=== PATIENT | female | born 1945 | race Caucasian/White ===

== ENCOUNTER 2018-03-25 13:39 | Emergency (ER) | payer MEDICARE ==
[~2018-03-25] VITALS: Ht 162.6 cm; Wt 70.8 kg
[2018-03-25 14:00] VITALS: BP 153/74
[2018-03-25] MEDS ORDERED: CEPH500C PO (14:11)
[2018-03-25] MEDS ORDERED: DIPHTH,PERTUSS(ACELL),TET TOX 0.5 ML DISP.SYRIN. VAX IM ONE (14:15)
--- NOTE | 2018-03-25 14:15 | PHYS DOC ---
Past History Past Medical History: Arthritis, Cancer, GERD, Hypertension, Other Past Surgical History: Knee Replacement, Other Alcohol Use: None Drug Use: None Adult General Chief Complaint Chief Complaint: UPPER EXTREMITY PAIN HPI HPI Patient is a 73-year-old female who is presenting with right forearm redness and swelling. 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 Symptoms are mild to moderate and worsening with time Current Medications Current Medications Current Medications Medications (Trade) Dose Ordered Sig/Therese Start Time Stop Time Status Last Admin Dose Admin Diphtheria/ Tetanus/Acell Pertussis (Boostrix) 0.5 ml ONCE ONCE 03/25/18 14:15 03/25/18 14:16 UNV Allergies Allergies Allergies Coded Allergies Type Severity Reaction Last Updated Verified No Known Drug Allergies 03/25/18 No Physical Exam Physical Exam Constitutional: Well developed, well nourished, no acute distress, non-toxic appearance. [] HENT: Normocephalic, atraumatic, bilateral external ears normal, oropharynx moist, no oral exudates, nose normal. [] Eyes: PERRLA, EOMI, conjunctiva normal, no discharge. [] Neck: Normal range of motion, no tenderness, supple, no stridor. [] Normal respiratory effort no increased work of breathing Abdomen: Bowel sounds normal, soft, no tenderness, no masses, no pulsatile masses. [] Skin: Right forearm there is a small healing abrasion to the right forearm and there is maybe some very faint streaking and mild swelling of the forearm = Extremities: See above Neurologic: Alert and oriented X 3, normal motor function, normal sensory function, no focal deficits noted. [] Psychologic: Affect normal, judgement normal, mood normal. [] Current Patient Data Vital Signs Vital Signs Date Time Temp Pulse Resp B/P (MAP) Pulse Ox O2 Delivery O2 Flow Rate FiO2 03/25/18 14:00 97.9 69 18 97 Room Air EKG EKG [] Radiology/Procedures Radiology/Procedures [] Course & Med Decision Making Course & Med Decision Making Pertinent Labs and Imaging studies reviewed. (See chart for details) []Recent minor abrasion to the right forearm possible mild cellulitis neurovascularly intact radial pulse intact median ulnar radial nerve function is intact wrist extension and flexion is intact. She really mild cellulitis. This is updated with a prescription for Keflex was given return precautions were discussed and she voiced understanding overall the symptoms and exam are fairly mild. Dragbob Disclaimer Dragon Disclaimer This electronic medical record was generated, in whole or in part, using a voice recognition dictation system. Departure Departure: Impression: Primary Impression: Cellulitis Disposition: HOME, SELF-CARE Condition: IMPROVED Patient Instructions: Cellulitis, [id number] Scripts Cephalexin (CEPHALEXIN) 500 Mg Capsule 1 CAP PO QID, #40 CAP Prov: STARLA RESENDIZ MD 03/25/18 STARLA RESENDIZ MD Mar 25, 2018 14:15
== END 2018-03-25 14:41 | disposition home or self-care (01) ==
LOC: ER 13:39
DX: L03.113 Cellulitis of right upper limb (principal); K21.9 Gastro-esophageal reflux disease without esophagitis; I10 Essential (primary) hypertension
CPT/HCPCS: 90471; 90715; 99283-25

== ENCOUNTER → 2019-06-09 | Outpatient (CLI) | payer MEDICARE ==
[~2019-06-09] MED LIST: CEPH500C PO
[2019-06-09 10:10] LABS: ALBUMIN 3.5 g/dL (3.4-5.0); CALCIUM 8.9 mg/dL (8.5-10.1); CREATININE 1.1 mg/dL (0.6-1.0); GFR 48.3; POTASSIUM 4.1 mmol/L (3.5-5.1); TOTAL BILIRUBIN 0.5 mg/dL (0.2-1.0); TOTAL PROTEIN 7.1 g/dL (6.4-8.2)
== END | disposition home or self-care (01) ==
LOC: LAB 09:14
PROVIDERS: ATTEND Nurse Practitioner
DX: E78.5 Hyperlipidemia, unspecified (principal)
CPT/HCPCS: 36415; 80053; 80061

== ENCOUNTER 2021-05-08 13:12 | Emergency (ER) | payer MEDICARE ==
[~2021-05-08] VITALS: Ht 162.6 cm; Wt 78.2 kg
[2021-05-08] MEDS ORDERED: IOHEXOL 350 MG/ML 100 ML VIAL. IV ONE (14:15)
[2021-05-08] MEDS ORDERED: CONTRAST GIVEN. MC PRN (14:30)
[2021-05-08 14:42] LABS: BASO # 0.1 x10^3/uL (0.0-0.2); BASO % 1 % (0-3); EOS # 0.2 x10^3/uL (0.0-0.7); EOS % 3 % (0-3); HEMATOCRIT 40.1 % (36.0-47.0); HEMOGLOBIN 13.3 g/dL (12.0-15.5); LYMPH # 1.2 x10^3/uL (1.0-4.8); LYMPH % 14 % (24-48); MEAN CORPUSCULAR HEMOGLOBIN 32 pg (25-35); MEAN CORPUSCULAR HGB CONC 33 g/dL (31-37); MEAN CORPUSCULAR VOLUME 96 fL (79-100); MONO # 0.6 x10^3/uL (0.0-1.1); MONO % 7 % (0-9); NEUT % 74 % (31-73); PLATELET COUNT 299 x10^3/uL (140-400); RED BLOOD COUNT 4.16 x10^6/uL (3.50-5.40); RED CELL DISTRIBUTION WIDTH 13.9 % (11.5-14.5); WHITE BLOOD COUNT 8.1 x10^3/uL (4.0-11.0)
[2021-05-08 14:55] LABS: CALCIUM 9.1 mg/dL (8.5-10.1); CREATININE 1.1 mg/dL (0.6-1.0); POTASSIUM 3.4 mmol/L (3.5-5.1)
--- NOTE | 2021-05-08 14:58 | EKG ---
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
[2021-05-08 15:01] LABS: ALBUMIN 3.6 g/dL (3.4-5.0); ALBUMIN/GLOBULIN RATIO 1.1 (1.0-1.7); MAGNESIUM 1.9 mg/dL (1.8-2.4); TOTAL BILIRUBIN 0.8 mg/dL (0.2-1.0); TOTAL PROTEIN 6.9 g/dL (6.4-8.2)
--- NOTE | 2021-05-08 15:56 | PHYS DOC ---
Past History Past Medical History: Arthritis, Cancer, GERD, Hypertension, Other Additional Past Medical Histor: acsending aortic anneurism (ANUPAMA GARY DO) Past Surgical History: Knee Replacement, Other Additional Past Surgical Histo: right shoulder; abd exploratory lap;R wrist fx (ANUPAMA GARY DO) Alcohol Use: None Drug Use: None (ANUPAMA GARY DO) General Adult EDM: Chief Complaint: ABDOMINAL PAIN HPI: HPI: 76-year-old F PMH "ascending aneurysm," followed by Dr. Cox, GERD, HTN and OA, presents the ED with complaints of dull, hard pain that started around 930 this morning after eating [employer], reports it moved from the edge of her sternum to her bellybutton with associated nonbloody nonbilious vomiting. Patient states she drove herself here. Is not vaccinated for Covid. 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 (ANUPAMA GARY DO) Review of Systems: Review of Systems: Constitutional: Denies fever or chills Eyes: Denies change in visual acuity HENT: Denies nasal congestion or sore throat Respiratory: Denies cough or shortness of breath Cardiovascular: Denies chest pain or edema GI: Denies bloody stools or diarrhea or steatorrhea : Denies dysuria or hematuria Musculoskeletal: Denies back pain or joint pain Integument: Denies rash or diaphoresis Neurologic: Denies headache, focal weakness or sensory changes Endocrine: Denies polyuria or polydipsia Lymphatic: Denies swollen glands Psychiatric: Denies depression or anxiety (ANUPAMA GARY DO) Current Medications: Current Meds: Current Medications Medications (Trade) Dose Ordered Sig/Therese Start Time Stop Time Status Last Admin Dose Admin Info (Do NOT chart on this entry -- for MONITORING) 1 each PRN DAILY PRN 05/08/21 14:30 05/10/21 14:29 Iohexol (Omnipaque 350 Mg/ml) 100 ml 1X ONCE 05/08/21 14:15 05/08/21 14:18 DC (ANUPAMA GARY DO) Allergies: Allergies: Allergies Coded Allergies Type Severity Reaction Last Updated Verified No Known Drug Allergies 05/08/21 No (ANUPAMA GARY DO) Physical Exam: PE: Constitutional: Well developed, well nourished, no acute distress, non-toxic appearance. HENT: Normocephalic, atraumatic, Eyes: EOMI, conjunctiva normal, no discharge. Neck: Normal range of motion, supple, Cardiovascular: S1/2 present, regular rhythm Lungs & Thorax: Speaking in full sentences, bilateral equal chest rise, no tachypnea or increased work of breathing Abdomen: soft, epigastric tenderness, some right upper quadrant tenderness but no Cha sign, no rigidity or guarding, no active emesis Skin: Warm, dry, no erythema, no rash. [] Extremities: No tenderness, no cyanosis, Neurologic: Alert and oriented X 3, normal motor function, normal sensory function, no focal deficits noted. [] Psychologic: Affect normal, judgement normal, mood normal. [] ([facility],ANUPAMA Sarmiento DO) Current Patient Data: Labs: Laboratory Tests Test 05/08/21 14:20 White Blood Count 8.1 x10^3/uL (4.0-11.0) Red Blood Count 4.16 x10^6/uL (3.50-5.40) Hemoglobin 13.3 g/dL (12.0-15.5) Hematocrit 40.1 % (36.0-47.0) Mean Corpuscular Volume 96 fL (79-100) Mean Corpuscular Hemoglobin 32 pg (25-35) Mean Corpuscular Hemoglobin Concent 33 g/dL (31-37) Red Cell Distribution Width 13.9 % (11.5-14.5) Platelet Count 299 x10^3/uL (140-400) Neutrophils (%) (Auto) 74 % (31-73) H Lymphocytes (%) (Auto) 14 % (24-48) L Monocytes (%) (Auto) 7 % (0-9) Eosinophils (%) (Auto) 3 % (0-3) Basophils (%) (Auto) 1 % (0-3) Neutrophils # (Auto) 6.0 x10^3uL (1.8-7.7) Lymphocytes # (Auto) 1.2 x10^3/uL (1.0-4.8) Monocytes # (Auto) 0.6 x10^3/uL (0.0-1.1) Eosinophils # (Auto) 0.2 x10^3/uL (0.0-0.7) Basophils # (Auto) 0.1 x10^3/uL (0.0-0.2) Sodium Level 145 mmol/L (136-145) Potassium Level 3.4 mmol/L (3.5-5.1) L Chloride Level 106 mmol/L (98-107) Carbon Dioxide Level 27 mmol/L (21-32) Anion Gap 12 (6-14) Blood Urea Nitrogen 20 mg/dL (7-20) Creatinine 1.1 mg/dL (0.6-1.0) H Estimated GFR (Cockcroft-Gault) 48.0 BUN/Creatinine Ratio 18 (6-20) Glucose Level 133 mg/dL (70-99) H Calcium Level 9.1 mg/dL (8.5-10.1) Magnesium Level 1.9 mg/dL (1.8-2.4) Total Bilirubin 0.8 mg/dL (0.2-1.0) Aspartate Amino Transferase (AST) 33 U/L (15-37) Alanine Aminotransferase (ALT) 28 U/L (14-59) Alkaline Phosphatase 170 U/L (46-116) H Troponin I Quantitative < 0.017 ng/mL (0-0.055) Total Protein 6.9 g/dL (6.4-8.2) Albumin 3.6 g/dL (3.4-5.0) Albumin/Globulin Ratio 1.1 (1.0-1.7) Lipase 80 U/L (73-393) Vital Signs: Vital Signs Date Time Temp Pulse Resp B/P (MAP) Pulse Ox O2 Delivery O2 Flow Rate FiO2 05/08/21 13:48 97.9 60 24 122/74 98 Room Air (ANUPAMA GARY DO) EKG: EK sinus rhythm 61 bpm, no axis deviation, QRS 128, QTC 45, PVCs present, T wave inversion in aVF, no ST elevations or ST depressions (ANUPAMA GARY DO) Radiology/Procedures: Radiology/Procedures: IMAGING REPORT Signed PATIENT: MICHELLE BLCAK ACCOUNT: [id number] : 1945 LOCATION: ER AGE: 76 SEX: F EXAM STATUS: REG ER ORD. PHYSICIAN: ANUPAMA GARY DO REASON: cp, h/o ascending anuerysm, r/o dissection - 75mls omni 350 PROCEDURE: CT ANGIO CHEST ABD PELVIS Exam: CT of chest, abdomen and pelvis with contrast INDICATION: History of ascending aneurysm TECHNIQUE: Sequential axial images through the chest, abdomen and pelvis obtained following the administration of 75 mL of Isovue-370 IV contrast. Sagittal and coronal reformatted images were reconstructed from the axial data and reviewed. Exposure: One or more of the following in the visualized dose reduction techniques were utilized for this examination: 1. Automated exposure control 2. Adjustment of the MA and/or KV according to patient size 3. Use of iterative of reconstructive technique Comparisons: Chest x-ray same day FINDINGS: Visualized portions of the thyroid are unremarkable. No enlarged mediastinal lymph nodes are identified. Heart size is normal. No pericardial effusion. There is aneurysmal dilatation of ascending aorta measuring up to 4.2 cm in diameter. Pulmonary artery is not enlarged. Airways are patent. No consolidation or pneumothorax. No suspicious lung nodules. No pleural effusion or thickening. Liver,, spleen, pancreas and adrenals are unremarkable. Gallbladder is mildly distended with mild wall thickening. No perinephric inflammation or hydronephrosis. No renal or ureteral calculi are identified. Bladder is distended and appears thin-walled. Uterus is not enlarged. No abnormal adnexal mass. Diverticulosis noted at the sigmoid colon without evidence of acute diverticulitis. Appendix is nonidentified. No free intra-abdominal air or fluid. No obstruction. Abdominal aorta has a normal course and caliber. Abdominal vasculature is patent. No enlarged abdominal lymph nodes are identified. No suspicious osseous lesions or acute fractures. IMPRESSION: 1. Aneurysmal dilatation of the ascending aorta measuring up to 4.2 cm. No evidence for dissection 2. Gallbladder is distended with mild wall thickening. Correlate with ultra sound for acute cholecystitis. Electronically signed by: Gilda Javed MD (05/08/2021 4:31 PM) [facility] S[facility] PATIENT: MICHELLE BLACK ACCOUNT: [id number] : 1945 LOCATION: ER AGE: 76 SEX: F EXAM STATUS: REG ER ORD. PHYSICIAN: ANUPAMA GARY DO REASON: cp PROCEDURE: PORTABLE CHEST 1V Single AP view of the chest. Comparison: None. Indication: Chest pain Findings: The heart is at the upper limits of normal. There is no pneumothorax or effusion. No air space or interstitial disease. Impression: 1. No acute cardiopulmonary process. Electronically signed by: Den Mejia MD (05/08/2021 4:08 PM) [facility] DI[facility]ATED AND SIGNED BY: DEN MEJIA MD DATE: 05/08/215 CC: DARREN REESE MD; ANUPAMA GARY DO ~MTH0 0 (ANUPAMA GARY DO) Radiology/Procedures: [place] [address] IMAGING REPORT Signed PATIENT: MICHELLE BLACK ACCOUNT: [id number] : 1945 LOCATION: ER AGE: 76 SEX: F EXAM STATUS: REG ER ORD. PHYSICIAN: ANUPAMA GARY DO REASON: cp PROCEDURE: PORTABLE CHEST 1V Single AP view of the chest. Comparison: None. Indication: Chest pain Findings: The heart is at the upper limits of normal. There is no pneumothorax or effusion. No air space or interstitial disease. Impression: 1. No acute cardiopulmonary process. Electronically signed by: Den Mejia MD (05/08/2021 4:08 PM) [facility] DI[facility]ATED AND SIGNED BY: DEN MEJIA MD DATE: 05/08/216 CC: DARREN REESE MD; ANUPAMA GARY DO ~MTH0 [address] [place] [address] IMAGING REPORT Signed PATIENT: MICHELLE BLACK ACCOUNT: [id number] : 1945 LOCATION: ER AGE: 76 SEX: F EXAM STATUS: REG ER ORD. PHYSICIAN: ANUPAMA GARY DO REASON: cp, h/o ascending anuerysm, r/o dissection - 75mls omni 350 PROCEDURE: CT ANGIO CHEST ABD PELVIS Exam: CT of chest, abdomen and pelvis with contrast INDICATION: History of ascending aneurysm TECHNIQUE: Sequential axial images through the chest, abdomen and pelvis obtained following the administration of 75 mL of Isovue-370 IV contrast. Sagittal and coronal reformatted images were reconstructed from the axial data and reviewed. Exposure: One or more of the following in the visualized dose reduction techniques were utilized for this examination: 1. Automated exposure control 2. Adjustment of the MA and/or KV according to patient size 3. Use of iterative of reconstructive technique Comparisons: Chest x-ray same day FINDINGS: Visualized portions of the thyroid are unremarkable. No enlarged mediastinal lymph nodes are identified. Heart size is normal. No pericardial effusion. There is aneurysmal dilatation of ascending aorta measuring up to 4.2 cm in diameter. Pulmonary artery is not enlarged. Airways are patent. No consolidation or pneumothorax. No suspicious lung nodules. No pleural effusion or thickening. Liver,, spleen, pancreas and adrenals are unremarkable. Gallbladder is mildly distended with mild wall thickening. No perinephric inflammation or hydronephrosis. No renal or ureteral calculi are identified. Bladder is distended and appears thin-walled. Uterus is not enlarged. No abnormal adnexal mass. Diverticulosis noted at the sigmoid colon without evidence of acute diverticulitis. Appendix is nonidentified. No free intra-abdominal air or fluid. No obstruction. Abdominal aorta has a normal course and caliber. Abdominal vasculature is patent. No enlarged abdominal lymph nodes are identified. No suspicious osseous lesions or acute fractures. IMPRESSION: 1. Aneurysmal dilatation of the ascending aorta measuring up to 4.2 cm. No evidence for dissection 2. Gallbladder is distended with mild wall thickening. Correlate with ultrasound for acute cholecystitis. Electronically signed by: Gilda Javed MD (05/08/2021 4:31 PM) [facility] DICTATED AND SIGNED BY: GILDA JAVED MD DATE: 05/08/21 1626 CC: DARREN REESE MD; ANUPAMA GARY DO ~[facility] [id number] [place] [id number] IMAGING REPORT Signed PATIENT: MICHELLE BLACK ACCOUNT: [id number] : 1945 LOCATION: ER AGE: 76 SEX: F EXAM STATUS: REG ER ORD. PHYSICIAN: ANUPAMA GARY DO REASON: ruq pain, assesss gallbaldder PROCEDURE: ABDOMEN LTD EXAM: ULTRASOUND ABDOMEN LIMITED CLINICAL HISTORY: Reason: ruq pain, assesss gallbaldder / Spl. Instructions: / History: COMPARISON: CT same day TECHNIQUE: Limited ultrasound examination of the right upper quadrant of the abdomen was performed. FINDINGS: Liver contour is normal. Hepatopedal flow noted in the portal vein. Gallbladder is distended with mild wall thickening. No gallstones identified. No sonographic Cha sign per the department revenue investigator. Common bile duct measures 6 mm in diameter. Right kidney measures 10.3 cm in long axis. No hydronephrosis. Visualized portions aorta and IVC are unremarkable. IMPRESSION: 1. Dilated gallbladder with mild wall thickening. No other secondary signs of acute cholecystitis. Findings are equivocal for acute cholecystitis. HIDA scan would be definitive. 2. Normal sonographic appearance the liver. 3. No right-sided hydronephrosis. Electronically signed by: Gilda Javed MD (05/08/2021 6:19 PM) [facility] DICTATED AND SIGNED BY: GILDA JAVED MD DATE: 05/08/211811 CC: DARREN REESE MD; ANUPAMA GARY DO ~MTH0 0 (ERNESTO GAINES MD) Heart Score: C/O Chest Pain: Yes HEART Score for Chest Pain: HEART Score for Chest Pain Response (Comments) Value History Slighlty/Non-Suspicious 0 ECG Nonspecific Repolarizatio 1 Age > 65 2 Risk Factors 1 or 2 Risk Factors 1 Troponin < Normal Limit 0 Total 4 Risk Factors: Risk Factors: DM, Current or recent (<one month) smoker, HTN, HLP, family history of CAD, obesity. Risk Scores: Score 0 - 3: 2.5% MACE over next 6 weeks - Discharge Home Score 4 - 6: 20.3% MACE over next 6 weeks - Admit for Clinical Observation Score 7 - 10: 72.7% MACE over next 6 weeks - Early Invasive Strategies (ANUPAMA GARY DO) HEART Score for Chest Pain: HEART Score for Chest Pain Response (Comments) Value History Moderately Suspicious 1 ECG Nonspecific Repolarizatio 1 Age > 65 2 Risk Factors 1 or 2 Risk Factors 1 Troponin < Normal Limit 0 Total 5 Course & Med Decision Making: Course & Med Decision Making Pertinent Labs and Imaging studies reviewed. (See chart for details) Concern for upper abdominal pain in the setting of nonbloody nonbilious vomit ing. At shift change patient had recurrence of nausea and US was pending. Pt reported "it's coming back," the pain and nausea. Pt was signed out to Dr. Gaines for further medical management disposition. (ANUPAMA GARY DO) Course & Med Decision Making Discussed presentation, testing and treatment plan with Dr. Lantigua- hospitalist [facility] and Dr. Britt- surgery. Patient to transfer to [facility] for further evaluation and treatment. Possible elective cholecy stectomy. Impression: 1. Biliary colic 2. Cholecystitis 3. Ascending Aortic aneurysm history (ERNESTO GAINES MD) Dragon Disclaimer: Dragon Disclaimer: This electronic medical record was generated, in whole or in part, using a voice recognition dictation system. (ANUPAMA GARY DO) Departure Departure: Referrals: DARREN REESE MD (PCP) Dragon Disclaimer This chart was dictated in whole or in part using Voice Recognition software in a busy, high-work load, and often noisy Emergency Department environment. It may contain unintended and wholly unrecognized errors or omissions. (ERNESTO GAINES MD) ANUPAMA GARY DO May 08, 2021 15:56 ERNESTO GAINES MD May 08, 2021 19:40
--- NOTE | 2021-05-08 16:11 | RAD ---
Single AP view of the chest. Comparison: None. Indication: Chest pain Findings: The heart is at the upper limits of normal. There is no pneumothorax or effusion. No air space or in terstitial disease. Impression: 1. No acute cardiopulmonary process. Electronically signed by: Den Mejia MD (05/08/2021 4:08 PM) [facility]
--- NOTE | 2021-05-08 16:34 | RAD ---
Exam: CT of chest, abdomen and pelvis with contrast INDICATION: History of ascending aneurysm TECHNIQUE: Sequential axial images through the chest, abdomen and pelvis obtained following the admin istration of 75 mL of Isovue-370 IV contrast. Sagittal and coronal reformatted images were reconstruc jesus from the axial data and reviewed. Exposure: One or more of the following in the visualized dose reduction techniques were utilized for this examination: 1. Automated exposure control 2. Adjustment of the MA and/or KV according to patient size 3. Use of iterative of reconstructive technique Comparisons: Chest x-ray same day FINDINGS: Visualized portions of the thyroid are unremarkable. No enlarged mediastinal lymph nodes are identifi ed. Heart size is normal. No pericardial effusion. There is aneurysmal dilatation of ascending aorta trista uring up to 4.2 cm in diameter. Pulmonary artery is not enlarged. Airways are patent. No consolidation or pneumothorax. No suspicious lung nodules. No pleural effusion or thickening. Liver,, spleen, pancreas and adrenals are unremarkable. Gallbladder is mildly distended with mild wal l thickening. No perinephric inflammation or hydronephrosis. No renal or ureteral calculi are identified. Bladder is distended and appears thin-walled. Uterus is not enlarged. No abnormal adnexal mass. Diverticulosis noted at the sigmoid colon without evidence of acute diverticulitis. Appendix is nonid entified. No free intra-abdominal air or fluid. No obstruction. Abdominal aorta has a normal course and caliber. Abdominal vasculature is patent. No enlarged abdominal lymph nodes are identified. No suspicious osseous lesions or acute fractures. IMPRESSION: 1. Aneurysmal dilatation of the ascending aorta measuring up to 4.2 cm. No evidence for dissection 2. Gallbladder is distended with mild wall thickening. Correlate with ultrasound for acute cholecyst itis. Electronically signed by: Gilda Aguilar MD (05/08/2021 4:31 PM) [facility]
[2021-05-08] MEDS ORDERED: IV NORMAL SALINE 1,000ML 1,000 ML IV ONE (17:45)
[2021-05-08] MEDS ORDERED: HYDROmorphone PF 1 MG/ML DISP.SYRIN IVP ONE (17:45)
[2021-05-08] MEDS ORDERED: ONDANSETRON PF 4 MG/2 ML VIAL. IVP ONE (17:45)
[2021-05-08 18:00] VITALS: BP 168/64
--- NOTE | 2021-05-08 18:21 | RAD ---
EXAM: ULTRASOUND ABDOMEN LIMITED CLINICAL HISTORY: Reason: ruq pain, assesss gallbaldder / Spl. Instructions: / History: COMPARISON: CT same day TECHNIQUE: Limited ultrasound examination of the right upper quadrant of the abdomen was performed. FINDINGS: Liver contour is normal. Hepatopedal flow noted in the portal vein. Gallbladder is distended with mild wall thickening. No gallstones identified. No sonographic Cha s ign per the department educational paraprofessional. Common bile duct measures 6 mm in diameter. Right kidney measures 10.3 cm in long axis. No hydronephrosis. Visualized portions aorta and IVC are unremarkable. IMPRESSION: 1. Dilated gallbladder with mild wall thickening. No other secondary signs of acute cholecystitis. F indings are equivocal for acute cholecystitis. HIDA scan would be definitive. 2. Normal sonographic appearance the liver. 3. No right-sided hydronephrosis. Electronically signed by: Gilda Aguilar MD (05/08/2021 6:19 PM) [facility]
== END 2021-05-08 22:47 | disposition short-term general hospital (02) ==
LOC: ER 13:12
DX: K80.40 Calculus of bile duct with cholecystitis, unspecified, without obstruction (principal); I71.2 Thoracic aortic aneurysm, without rupture; I10 Essential (primary) hypertension; K21.9 Gastro-esophageal reflux disease without esophagitis; Z20.822 Contact with and (suspected) exposure to COVID-19
CPT/HCPCS: 36415; 71045; 71275; 74174; 74175; 76705; 80053; 83690; 83735; 84484; 85025; 93005; 96361; 96374; 96375; 99285; C9803; J1170; J2405; J7030; Q9967; U0003